=== PATIENT | female | born 1960 | race American Indian/Alaskan Native ===

== ENCOUNTER 2017-02-09 10:46 | Outpatient (CLI) | payer OTHER ==
--- NOTE | 2017-02-10 08:43 | Mammography Report ---
BILATERAL DIGITAL SCREENING MAMMOGRAM with CAD: 02/09/17 10:46:00 CLINICAL: Routine screening.History of bilateral reduction mammoplasty in previous left benign biopsy. COMPARISON:06/11/10 and 07/21/08 FINDINGS: The breasts are almost entirely fatty.Left biopsy clip at approximately 6 o'clock. Minimal postsurgical scar. No mass, architectural distortion or suspicious calcifications. IMPRESSION: No mammographic evidence of malignancy. BI-RADS CATEGORY: 2 -- Benign RECOMMENDATION: Routine mammographic screening in one year. COMMENT: Patient follow-up letters are generated by our [employer] application.
== END 2017-02-09 10:47 | disposition home or self-care (01) ==
LOC: SPVWC 10:46
PROVIDERS: ATTEND Internal Medicine
DX: Z12.31 Encounter for screening mammogram for malignant neoplasm of breast (principal); Z98.890 Other specified postprocedural states
CPT/HCPCS: 77067; G0202

== ENCOUNTER 2017-04-22 14:39 | Outpatient (CLI) | payer OTHER ==
--- NOTE | 2017-04-22 16:03 | Ultrasound Report ---
Transabdominal and transvaginal pelvic ultrasound. History: Right adnexal mass on physical examination. Findings: There is a pedunculated homogeneous mass arising from the right lateral aspect of the fundus of the uterus measuring 3.8 x 4.3 x 4.1 cm. This is best seen on the transabdominal study. The endometrial echo is markedly thickened at 2.4 cm and demonstrates slight heterogeneous appearance. The ovaries are not identified, but no additional masses are seen. There is no fluid within the cul-de-sac. Impression: 1. Markedly abnormal thickening of the endometrial ECHO with heterogeneous appearance. An endometrial mass cannot be excluded. Further evaluation is indicated. 2. Pedunculated fibroid arising from the right lateral fundus.
== END 2017-04-22 14:40 | disposition home or self-care (01) ==
LOC: SPVWC 14:39
PROVIDERS: ATTEND Internal Medicine
DX: D25.9 Leiomyoma of uterus, unspecified (principal); N83.201 Unspecified ovarian cyst, right side; R93.8 Abnormal findings on diagnostic imaging of other specified body structures
CPT/HCPCS: 76830; 76856